=== PATIENT | male | born 1975 | race Caucasian/White ===

== ENCOUNTER 2022-08-08 07:52 | Outpatient (OUT) | payer OTHER, SELFPAY ==
--- NOTE | 2022-08-08 08:02 | US_ITS ---
[address] [address] Patient Name: FIDELIA WISDOM MRN: [id number] date: 1975 Sex: M Assigned Patient Location: US Current Patient Location: US Accession/Order Number: [id number] Exam Date: 08/08/2022 08:05 Report Date: 08/08/2022 08:54 At the request of: TROY DUNNE Procedure: US right upper quadrant EXAM: US right upper quadrant HISTORY: Right Upper Quadrant Pain R10.11, Alcohol Abuse F10.10 COMPARISON: None. TECHNIQUE: Grayscale, color and Doppler ultrasound FINDINGS: The liver is enlarged in size. Heterogeneous echotexture with multiple hepatic masses, the largest measures 6.7 x 8.8 x 6.5 cm. Hepatopedal flow in the main portal vein with velocity 43 cm/s The gallbladder is normal in size. The wall is thickened measuring 3.8 mm. Negative sonographic Mejia sign. The common bile duct measures 1.9 mm, normal Visualized pancreatic body is normal The right kidney is normal measuring 11.2 x 5.0 x 5.4 cm No ascites IMPRESSION: Enlarged lobular liver containing multiple masses measuring up to 8.8 cm. Follow-up CT scan without and with contrast, multiphasic protocol is recommended for further evaluation Electronically authenticated by: HAROLDO TOWNSEND Date: 08/08/2022 08:54
== END 2022-08-08 07:53 | disposition home or self-care (01) ==
PROVIDERS: PCP Family Medicine; Visit Provider Family Medicine
DX: R10.11 Right upper quadrant pain (principal); F10.10 Alcohol abuse, uncomplicated
CPT/HCPCS: 36415; 76705; 80053; 82140; 82150; 83690; 85025; 86677

== ENCOUNTER 2022-08-08 12:40 | Outpatient (OUT) | payer OTHER, SELFPAY ==
[2022-08-08 13:03] LABS: Basophils Absolute Auto 0.1 10^3/uL (0.0-0.1); Basophils Percent Auto 0.6 % (0.2-2.0); Eosinophils Absolute Auto 0.4 10^3/uL (0.0-0.7); Eosinophils Percent Auto 3.2 % (0.9-7.0); Hematocrit 40.5 % (42.0-54.0); Hemoglobin 12.9 g/dL (14.0-18.0); Immature Granulocytes Abs Auto 0.03 10^3/uL (0.00-0.03); Immature Granulocytes Pct Auto 0.3 % (0.0-0.5); Lymphocytes Absolute Auto 1.4 10^3/uL (1.2-3.8); Lymphocytes Percent Auto 12.3 % (20.5-60.0); Mean Corpuscular HGB Conc 31.9 g/dL (29.9-35.2); Mean Corpuscular Hemoglobin 25.6 pg (25.9-34.0); Mean Corpuscular Volume 80.5 fL (80.0-94.0); Mean Platelet Volume 9.3 fL (9.5-13.5); Monocytes Percent Auto 8.5 % (1.7-12.0); Neutrophils Absolute Auto 8.5 10^3/uL (1.4-6.5); Neutrophils Percent Auto 75.1 % (43.0-75.0); Platelet Count 399 10^3/uL (150-450); Red Blood Count 5.03 10^6/uL (4.70-6.10); Red Cell Distribution Width 14.2 % (11.0-15.0); White Blood Count 11.3 10^3/uL (4.0-11.0)
[2022-08-08 13:15] LABS: Ammonia <10 umol/L (11-32)
[2022-08-08 13:35] LABS: Alanine Aminotransferase 44 U/L (16-63); Albumin Globulin Ratio 0.8; Albumin Level 3.5 g/dL (3.4-5.0); Alkaline Phosphatase 300 U/L (46-116); Amylase 31 U/L (25-115); Anion Gap 16.1; Aspartate Amino Transferase 111 U/L (15-37); BUN Creatinine Ratio 15.6; Bilirubin Total 0.8 mg/dL (0.2-1.0); Calcium 9.4 mg/dL (8.5-10.1); Carbon Dioxide 25.2 mmol/L (21.0-32.0); Chloride 105 mmol/L (98-107); Estimated GFR (African America >60 (>=60); Estimated GFR (Non-African Ame >60 (>=60); Globulin 4.2 g/dL; Glucose 75 mg/dL (74-106); Potassium 4.3 mmol/L (3.5-5.1); Sodium 142 mmol/L (136-145); Total Protein 7.7 g/dL (6.4-8.2)
== END 2022-08-08 12:41 | disposition home or self-care (01) ==
LOC: LAB 12:42
PROVIDERS: PCP Family Medicine; Visit Provider Family Medicine
DX: R10.11 Right upper quadrant pain (principal)
CPT/HCPCS: 36415; 80053; 82140; 82150; 83690; 85025; 86677

== ENCOUNTER 2022-08-19 06:58 | Outpatient (OUT) | payer OTHER, SELFPAY ==
--- NOTE | 2022-08-19 07:01 | CT_ITS ---
[address] [address] Patient Name: FIDELIA WISDOM MRN: [id number] date: 1975 Sex: M Assigned Patient Location: CT Current Patient Location: CT Accession/Order Number: [id number] Exam Date: 08/19/2022 08:50 Report Date: 08/19/2022 13:51 At the request of: TROY DUNNE Procedure: CT abdomen wo/w con EXAMINATION: CT abdomen wo/w con HISTORY: Other Specified Diseases Of The Liver K76.89 COMPARISON: Ultrasound right upper quadrant 08/08/2022 TECHNIQUE: Axial, Coronal, and Sagittal images were created without and with non-ionic intravenous contrast material. Dose reduction techniques were achieved by using automated exposure control and/or adjustment of mA and/or kV according to patient size and/or use of iterative reconstruction technique. FINDINGS: LUNG BASES: No visible pulmonary or pleural disease. LIVER: Numerous rounded lobular hypodense lesions throughout the liver measuring up to 8 cm. These are certainly mild enhancement, but appearance favor neoplasm. BILIARY: No visible dilatation or calcification. PANCREAS: No lesion, fluid collection, ductal dilatation, or atrophy. SPLEEN: Enlarged, 14.2 cm. ADRENALS: No mass or enlargement. KIDNEYS: No mass, obstruction, or calcification. BOWEL/MESENTERY: No visible mass, obstruction, or bowel wall thickening. AORTA/VASCULAR: No aneurysm or dissection. RETROPERITONEUM: No mass or adenopathy. ABDOMINAL WALL: No mass or hernia. BONES: No bony lesion or fracture. OTHER: Negative. CT/CT abdomen wo/w con IMPRESSION: 1. Innumerable small and large lesions throughout the liver most suggestive of tumor; neoplasm versus benign tumor. Tissue sampling is recommended. 2. Slightly enlarged, but homogeneous spleen; nonspecific. No other findings to suggest portal hypertension. Electronically authenticated by: RON SOUTH Date: 08/19/2022 13:51
== END 2022-08-19 06:59 | disposition home or self-care (01) ==
LOC: CT 06:58
PROVIDERS: PCP Family Medicine; Visit Provider Family Medicine
DX: K76.89 Other specified diseases of liver (principal)
CPT/HCPCS: 74170; Q9967

== ENCOUNTER 2022-09-23 11:26 | Outpatient (OUT) | payer OTHER, SELFPAY ==
[2022-09-23 13:51] LABS: Basophils Absolute Auto 0.1 10^3/uL (0.0-0.1); Basophils Percent Auto 0.7 % (0.2-2.0); Eosinophils Absolute Auto 0.3 10^3/uL (0.0-0.7); Eosinophils Percent Auto 3.6 % (0.9-7.0); Hematocrit 36.6 % (42.0-54.0); Hemoglobin 11.7 g/dL (14.0-18.0); Immature Granulocytes Abs Auto 0.03 10^3/uL (0.00-0.03); Immature Granulocytes Pct Auto 0.3 % (0.0-0.5); Lymphocytes Absolute Auto 1.1 10^3/uL (1.2-3.8); Lymphocytes Percent Auto 11.4 % (20.5-60.0); Mean Corpuscular Hemoglobin 24.8 pg (25.9-34.0); Mean Corpuscular Volume 77.5 fL (80.0-94.0); Mean Platelet Volume 9.7 fL (9.5-13.5); Monocytes Absolute Auto 0.8 10^3/uL (0.3-0.8); Monocytes Percent Auto 8.5 % (1.7-12.0); Neutrophils Absolute Auto 7.1 10^3/uL (1.4-6.5); Neutrophils Percent Auto 75.5 % (43.0-75.0); Platelet Count 468 10^3/uL (150-450); Red Blood Count 4.72 10^6/uL (4.70-6.10); Red Cell Distribution Width 13.8 % (11.0-15.0); White Blood Count 9.5 10^3/uL (4.0-11.0)
[2022-09-23 14:05] LABS: Alanine Aminotransferase 49 U/L (16-63); Albumin Globulin Ratio 0.7; Albumin Level 3.4 g/dL (3.4-5.0); Alkaline Phosphatase 366 U/L (46-116); Aspartate Amino Transferase 134 U/L (15-37); BUN Creatinine Ratio 14.3; Bilirubin Total 0.4 mg/dL (0.2-1.0); Calcium 9.5 mg/dL (8.5-10.1); Carbon Dioxide 23.7 mmol/L (21.0-32.0); Chloride 103 mmol/L (98-107); Estimated GFR (African America >60 (>=60); Estimated GFR (Non-African Ame >60 (>=60); Globulin 4.7 g/dL; Glucose 136 mg/dL (74-106); Lactate Dehydrogenase 2109 U/L (85-227); Potassium 3.7 mmol/L (3.5-5.1); Sodium 139 mmol/L (136-145); Total Protein 8.1 g/dL (6.4-8.2)
[2022-09-24 04:10] LABS: CA 19-9 3964 U/mL (0-35)
== END 2022-09-23 11:27 | disposition home or self-care (01) ==
LOC: HEMC 11:27
PROVIDERS: PCP Family Medicine; Visit Provider Internal Medicine Hematology & Oncology
DX: C18.9 Malignant neoplasm of colon, unspecified (principal); C78.7 Secondary malignant neoplasm of liver and intrahepatic bile duct; D72.829 Elevated white blood cell count, unspecified; D64.9 Anemia, unspecified
CPT/HCPCS: 36415; 80053; 82378; 83615; 85025; 86301; G0463

== ENCOUNTER 2022-10-20 07:00 | Outpatient (OUT) | payer OTHER, SELFPAY ==
--- NOTE | 2022-10-20 08:12 | CA_ITS ---
Patient: FIDELIA WISDOM Exam Date: 10/20/2022 : 1975 Gender:M Ordering : DR. LAUREN ROLAND M.D. Admission #: [id number] Family : Order #: [id number] CLICK HERE TO VIEW EXAM ECHOCARDIOGRAM REPORT PROCEDURE: CA ECHO DOPPLER COMPLETE INDICATIONS: Colon Cancer metastasized to the liver, Cardiotoxicity COMPARISON: None. DESCRIPTION: COMPLETE ECHOCARDIOGRAM Real-time transthoracic echocardiography with 2D, M-mode, spectral and color flow Doppler performed. QUALITY: Technical quality was good. LEFT VENTRICLE: Normal chamber size. Normal left ventricular wall thickness. LV EF: Global left ventricular systolic function is normal. Calculated left ventricular ejection fraction is 67%. DIASTOLIC: Normal diastolic function. ATRIAL SEPTUM: Inadequately seen. LEFT ATRIUM: Normal chamber size. RIGHT ATRIUM: Normal chamber size. RIGHT VENTRICLE: Normal chamber size. Normal right ventricular systolic function. TRICUSPID VALVE: Normal mobility and thickness. No stenosis with trivial regurgitation. No evidence of pulmonary hypertension. RVSP 20mmHg MITRAL VALVE: Mildly thickened with normal mobility. No evidence of mitral valve stenosis. There is no mitral annular calcification. No mitral regurgitation. AORTIC VALVE: The aortic valve appears to be bicuspid with a prominent raphe. Mildly calcified aortic valve. Normal leaflet mobility. No evidence of aortic valve stenosis. Trivial aortic regurgitation. AORTIC ROOT: Normal diameter and appearance. Mild dilation of the ascending aorta measuring 3.8cm. PULMONIC VALVE: Normal thickness and mobility. No stenosis. No regurgitation. PERICARDIUM: Trivial pericardial effusion. IVC: Collapses with inspirations. Normal size. CONCLUSION: 1. Global left ventricular systolic function is hyperdynamic; visually estimated ejection fraction 65 to 70% 2. Normal diastolic function 3. The right ventricle is normal in size and systolic function 4. The aortic valve appears to be bicuspid 5. Mild dilatation of the ascending aorta 6. Trivial pericardial effusion Adult Echocardiography Procedure Report Left Ventricle LVEDD (3.7 - 5.6 cm): 5.35 cm LVESD (2.2 - 4.0 cm): 3.77 cm LVIVS thickness (0.6 - 1.2 cm): 1.01 cm LVPW thickness (0.5 - 1.0 cm): 0.98 cm e': 0.12 m/s E - e': 6.91 LVOT Max Gradient: 3.56 mm[Hg], 3.56 mm[Hg] LVOT Area (cm2): 0.94 m/s Peak Velocity (LVOT): 0.94 m/s, 0.94 m/s Mean Velocity (LVOT): 0.59 m/s LVOT Diameter 2.64 cm Left Ventricular Ejection Fraction: 67.22 % Left Atrium LA Volume Index (2D A2C): 27.69 ml/m2 Left Atrium Systolic Dimension: 3.84 cm Mitral Valve MV E to A Ratio: 1.09 Mitral Valve A-Wave Peak Velocity: 0.76 m/s Mitral Valve E-Wave Peak Velocity: 0.83 m/s Right Ventricle RV Internal Diastolic Dimension: 3.71 cm Aorta AO Root Diam: 3.41 cm Ascending Ao Diam: 3.83 cm Aortic Valve AoV Area (Peak Tacho): 2.73 cm2, 2.80 cm2, 2.66 cm2 AoV Area (VTI): 2.92 cm2, 2.90 cm2, 2.94 cm2 Peak Velocity(Antegrade Flow): 1.84 m/s, 1.93 m/s Peak Gradient(Antegrade Flow): 13.54 mm[Hg], 14.95 mm[Hg] Mean Velocity(Antegrade Flow): 1.28 m/s, 1.33 m/s Mean Gradient(Antegrade Flow): 7.49 mm[Hg], 8.07 mm[Hg] Velocity Time Integral: 36.45 cm, 36.82 cm Tricuspid Valve Peak Velocity (Regurgitant Flow): 1.70 m/s, 1.59 m/s, 1.99 m/s, 2.03 m/s Pulmonic Valve Mean Gradient: 4.29 mm[Hg], 4.63 mm[Hg] Mean Velocity: 0.96 m/s, 1.00 m/s Peak Velocity: 1.51 m/s Peak Gradient: 9.30 mm[Hg], 8.95 mm[Hg] Right Atrium Right Atrium Systolic Pressure: 50.94 ml, 50.94 ml Dictated by: Gus Alvarez M.D. on 10/21/2022 at 16:18 Approved by: Gus Alvarez M.D. on 10/21/2022 at 16:22
== END 2022-10-20 07:01 | disposition home or self-care (01) ==
PROVIDERS: PCP Family Medicine; Visit Provider Internal Medicine Hematology & Oncology
DX: C18.9 Malignant neoplasm of colon, unspecified (principal); C78.7 Secondary malignant neoplasm of liver and intrahepatic bile duct; Q23.1 Congenital insufficiency of aortic valve
CPT/HCPCS: 93306; 93356

== ENCOUNTER 2024-06-20 11:40 | Outpatient (OUT) | payer OTHER, SELFPAY ==
--- NOTE | 2024-06-20 11:58 | XR_ITS ---
The [address] [address] Patient Name: FIDELIA WISDOM MRN: [id number] date: 1975 Sex: M Assigned Patient Location: LAB Current Patient Location: LAB Accession/Order Number: [id number] Exam Date: 06/20/2024 12:12 Report Date: 06/20/2024 12:17 At the request of: TROY DUNNE MD Procedure: XR chest 2V PA AND LATERAL CHEST: CLINICAL HISTORY: hypertension COMPARISON: None An Csuecu-c-Feyt catheter is present on the right. There is slight elevation of the right hemidiaphragm. There are pulmonary nodules bilaterally suggesting metastatic disease. Patient had a prior CT abdomen showing liver lesions in 2022 however there is no reported history of malignancy. There is no focal parenchymal consolidation, effusion or pneumothorax. The cardiac, hilar and mediastinal silhouettes are within normal limits. There is no vascular congestion. The visualized bony thorax is intact. Minor endplate spurring is seen at the spine. XR/XR chest 2V IMPRESSION: PULMONARY NODULARITY SUGGESTING METASTATIC DISEASE. NO OTHER ACUTE FINDINGS. Impression dictated by: Susan Thomson M.D. 06/20/2024 12:17 PM Dictation Location: [place] [address] Electronically authenticated by: [id number] Y Date: 06/20/2024 12:17
[2024-06-20 12:01] LABS: Hematocrit 30.7 % (42.0-54.0); Hemoglobin 10.8 g/dL (14.0-18.0); Mean Corpuscular HGB Conc 35.2 g/dL (29.9-35.2); Mean Corpuscular Hemoglobin 29.6 pg (25.9-34.0); Mean Corpuscular Volume 84.1 fL (80.0-94.0); Mean Platelet Volume 9.9 fL (9.5-13.5); Platelet Count 425 10^3/uL (150-450); Red Blood Count 3.65 10^6/uL (4.70-6.10); Red Cell Distribution Width 20.9 % (11.0-15.0)
[2024-06-20 12:21] LABS: Ammonia 25 umol/L (11-32)
[2024-06-20 12:34] LABS: INR 2.01; Partial Thromboplastin Time 39.4 sec (22.3-36.2); Prothrombin Time 19.9 sec (9.0-11.6)
[2024-06-20 12:35] LABS: Lactate/Lactic Acid 3.5 mmol/L (0.4-2.0)
[2024-06-20 12:44] LABS: Lymphocytes Absolute Manual 0.44 10^3/uL (1.20-3.80); Monocytes Absolute Manual 0.88 10^3/uL (0.30-0.80); Segmented Neut Absolute Manual 20.68 10^3/uL (1.4-6.5)
[2024-06-20 12:45] LABS: Anisocytosis 2+; Target Cells 1+
[2024-06-20 13:08] LABS: Alanine Aminotransferase 81 U/L (16-63); Albumin Globulin Ratio 0.4; Albumin Level 1.4 g/dL (3.4-5.0); Alkaline Phosphatase 2038 U/L (46-116); Anion Gap 18.7; Aspartate Amino Transferase 272 U/L (15-37); BUN Creatinine Ratio 23.5; Bilirubin Total 3.8 mg/dL (0.2-1.0); Calcium 8.6 mg/dL (8.5-10.1); Carbon Dioxide 21.3 mmol/L (21.0-32.0); Chloride 93 mmol/L (98-107); Estimated GFR (African America 21 (>=60 mL/min/1.73m^2); Estimated GFR (Non-African Ame 17 (>=60 mL/min/1.73m^2); Free T3 0.84 pg/mL (2.18-3.98); Globulin 3.9 g/dL; Glucose 71 mg/dL (74-106); Sodium 127 mmol/L (136-145); Total Protein 5.3 g/dL (6.4-8.2); Troponin I High Sensitivity 9.8 pg/mL (4.0-76.1)
== END 2024-06-20 11:41 | disposition home or self-care (01) ==
LOC: LAB 11:41
PROVIDERS: PCP Family Medicine; Visit Provider Family Medicine
DX: E78.1 Pure hyperglyceridemia (principal); F10.10 Alcohol abuse, uncomplicated; C19 Malignant neoplasm of rectosigmoid junction; C22.9 Malignant neoplasm of liver, not specified as primary or secondary; K21.9 Gastro-esophageal reflux disease without esophagitis; I50.30 Unspecified diastolic (congestive) heart failure; R91.8 Other nonspecific abnormal finding of lung field; I11.0 Hypertensive heart disease with heart failure
CPT/HCPCS: 36415; 71046; 80053; 82140; 83605; 83880; 84436; 84443; 84481; 84484; 85007; 85027; 85610; 85730